=== PATIENT | male | born 1990 | race Caucasian/White ===

== ENCOUNTER 2021-11-01 13:54 | Emergency (ER) | payer BC ==
--- NOTE | 2021-11-01 14:24 | XRAY Report ---
PROCEDURE: Chest 1 View X-Ray INDICATIONS: Chest pain TECHNIQUE: One view of the chest was acquired. COMPARISON: None FINDINGS: Surgical changes and devices: None. Lungs and pleura: No pleural effusions or pneumothorax. Lungs are clear. Mediastinum: Mediastinal contours appear normal. Heart size is normal. Bones and chest wall: No suspicious bony lesions. Overlying soft tissues appear unremarkable. IMPRESSION: No acute cardiopulmonary findings. Reviewed by: Leeann Altman MD on 11/01/2021 2:23 PM PDT Approved by: Leeann Altman MD on 11/01/2021 2:23 PM PDT Station ID: [id number]
--- NOTE | 2021-11-01 14:35 | ED Physician Documentation ---
History of Present Illness - Stated complaint Stated Complaint: CHEST PAIN - Chief complaint Chief Complaint: General - Additonal information Additional information: 31-year-old male presents emergency department for evaluation of chest pain. Reports that 2 days ago he had some substernal left-sided chest pain while working. Intermittently since then he has had some epigastric pain and sour taste in his mouth. He reports a history of severe acid reflux though is not medicated for it. He did go to a local walk-in clinic for evaluation of the chest pain and was referred to the ER. No tobacco or alcohol use. Unsure of his family cardiac history. He is not hypertensive. Review of Systems Constitutional: reports: Reviewed and negative Ears: reports: Reviewed and negative Nose: reports: Reviewed and negative Throat: reports: Reviewed and negative Cardiac: reports: Chest pain / pressure. denies: Palpitations Respiratory: reports: Reviewed and negative GI: reports: Other (hx of sour taste/acid reflux). denies: Nausea, Vomiting : reports: Reviewed and negative Skin: reports: Reviewed and negative Musculoskeletal: reports: Reviewed and negative Neurologic: reports: Reviewed and negative PD PAST MEDICAL HISTORY - Present Medications Home Medications: Ambulatory Orders Medication Instructions Recorded Confirmed No Known Home Medications 11/01/21 11/01/21 - Allergies Allergies/Adverse Reactions: Allergies Allergy/AdvReac Type Severity Reaction Status Date / Time No Known Drug Allergies Allergy Verified 11/01/21 14:02 PD ED PE NORMAL - General General: Alert and oriented X 3, No acute distress, Well developed/nourished - HEENT HEENT: Atraumatic, Moist mucous membranes - Neck Neck: Supple, no meningeal sign, No adenopathy - Cardiac Cardiac: RRR, No murmur - Respiratory Respiratory: No respiratory distress, Clear bilaterally - Abdomen Abdomen: Normal bowel sounds, Soft, Non tender, Non distended - Back Back: No CVA TTP, No spinal TTP - Derm Derm: Normal color, Warm and dry - Extremities Extremities: No deformity, No tenderness to palpate, Normal ROM s pain - Neuro Neuro: Alert and oriented X 3, materials director 2-12 intact Eye Opening: Spontaneous Motor: Obeys Commands Verbal: Oriented GCS Score: 15 - Psych Psych: Normal mood Results - Vitals Vitals: Vital Signs - 24 hr 11/01/21 11/01/21 13:58 16:33 Temperature 36.0 C L 36.6 C Heart Rate 82 73 Respiratory 18 18 Rate Blood Pressure 143/86 H 133/86 H O2 Saturation 97 97 Oxygen O2 Source Room air - EKG (time done) 1403 Rate: Rate (enter#) (84) Rhythm: NSR [place]: Normal Intervals: Normal AR QRS: Normal Ischemia: Non specific changes (borderline T wave elevation V2-V4) - Labs Labs: Laboratory Tests 11/01/21 11/01/21 11/01/21 15:28 15:28 15:28 WBC 6.6 RBC 5.39 Hgb 15.2 Hct 45.1 MCV 83.7 MCH 28.2 MCHC 33.7 RDW 13.9 Plt Count 219 MPV 10.8 Neut # (Auto) 3.6 Lymph # (Auto) 1.4 L [place] # (Auto) 1.3 H Eos # (Auto) 0.2 Baso # (Auto) 0.0 Absolute Nucleated RBC 0.00 Nucleated RBC % 0.0 Sodium 140 Potassium 3.7 Chloride 99 L Carbon Dioxide 32 Anion Gap 9.0 BUN 11 Creatinine 0.9 Estimated GFR (MDRD) 99 Glucose 81 Calcium 9.4 Total Bilirubin 0.7 AST 35 ALT 54 Alkaline Phosphatase 79 Troponin I High Sens 20.2 H* Total Protein 7.9 Albumin 4.3 Globulin 3.6 Albumin/Globulin Ratio 1.2 Lipase 25 - Rads (name of study) cxr Radiology: Final report received (no acute cardiopulmonary findings) Departure - Departure Disposition: Home, Self Care Clinical Impression: Chest pain Qualifiers: Chest pain type: unspecified Qualified Code(s): R07.9 - Chest pain, unspecified Condition: Stable Record reviewed to determine appropriate education?: Yes Comments: Aramis banks were seen today in the emergency department for chest pain that began 2 days ago. Your chest x-ray is normal. Your EKG does not show findings to suggest a heart attack. Your screening labs were all essentially normal. I suspect that a component of your chest pain may be severe acid reflux. I recommend that you begin taking omeprazole 20 mg daily. This is available [id number] at any pharmacy. If at any point you feel that your symptoms worsen, you have any fainting episodes please return to the ER. I would like you to discuss this ED visit with your primary care doctor to see if you would benefit from referral to a counter clerk [employer] and or referral for endoscopy to evaluate for acid reflux in your upper abdomen.
[2021-11-01] MEDS ORDERED: MAG HYDROX/AL HYDROX/SIMETH 30 ML UDC PO STA (14:39)
[2021-11-01] MEDS ORDERED: LIDOCAINE VISCOUS 2% 15 ML UDC MM STA (14:39)
[2021-11-01 15:34] LABS: BASOPHILS % (AUTO) 0.5 %; EOSINOPHILS # (AUTO) 0.2 10^3/uL (0.0-0.7); EOSINOPHILS % (AUTO) 2.9 %; HCT - HEMATOCRIT 45.1 % (42.0-52.0); HGB - HEMOGLOBIN 15.2 g/dL (14.0-18.0); LYMPHOCYTES # (AUTO) 1.4 10^3/uL (1.5-3.5); LYMPHOCYTES % (AUTO) 21.9 %; MEAN CORPUSCULAR HEMOGLOBIN 28.2 pg (27.0-31.0); MEAN CORPUSCULAR HGB CONC 33.7 g/dL (32.0-36.0); MEAN CORPUSCULAR VOLUME 83.7 fL (80.0-94.0); MEAN PLATELET VOLUME 10.8 fL (7.4-11.4); MONOCYTES # (AUTO) 1.3 10^3/uL (0.0-1.0); NEUTROPHILS # (AUTO) 3.6 10^3/uL (1.5-6.6); NEUTROPHILS % (AUTO) 55.4 %; PLT - PLATELET COUNT 219 10^3/uL (130-450); RED BLOOD COUNT 5.39 10^6/uL (4.70-6.10); RED CELL DISTRIBUTION WIDTH 13.9 % (12.0-15.0); WHITE BLOOD COUNT 6.6 x10^3/uL (4.8-10.8)
[2021-11-01 15:51] LABS: ALBUMIN 4.3 g/dL (3.2-5.5); ALBUMIN/GLOBULIN RATIO 1.2 (1.0-2.2); BILIRUBIN,TOTAL 0.7 mg/dL (0.2-1.0); CALCIUM 9.4 mg/dL (8.5-10.3); CREATININE 0.9 mg/dL (0.6-1.2); POTASSIUM 3.7 mmol/L (3.5-5.0); TOTAL PROTEIN 7.9 g/dL (6.7-8.2)
[2021-11-01 16:34] VITALS: BP 133/86
== END 2021-11-01 17:00 | disposition home or self-care (01) ==
LOC: ED 13:54
DX: R07.9 Chest pain, unspecified (principal)
CPT/HCPCS: 36415; 71045; 80053; 83690; 84484; 85025; 93005; 99283; 99284; A9270